=== PATIENT | male | born 1995 | race Caucasian/White ===

== ENCOUNTER 2017-09-25 21:15 | Emergency (ER) | payer MEDICAID ==
[~2017-09-25] VITALS: Ht 162.6 cm; Wt 60.8 kg
[2017-09-25 21:15] VITALS: BP_SYST 121
--- NOTE | 2017-09-25 22:36 | NUR ---
Patient to ER bed 3 to gown for evaluation. Side rails up. Report given to SHEYLA RODRIGUEZ.
--- NOTE | 2017-09-25 22:40 | NUR ---
Patient arrived to ED a/o x 4 with c/o blood in urine. Patient reports experiencing blood in urine 1 week ago. Blood appeared again tonight, prompting ED visit. Patient denies further urinary symptoms. Denies back pain. Denies N/V. Afebrile. Will continue to monitor.
--- NOTE | 2017-09-25 23:00 | NUR ---
ED MD Bhatti at bedside for medical evaluation.
[2017-09-25 23:04] LABS: BILIRUBIN,URINE NEGATIVE (NEGATIVE); BLOOD, URINE 3+ (NEGATIVE); CLARITY/URINE SL HAZY (CLEAR); COLOR,URINE YELLOW (YELLOW); GLUCOSE,URINE NEGATIVE (NEGATIVE); KETONES,URINE NEGATIVE (NEGATIVE); LEUKOCYTE ESTERASE ,URINE TRACE (NEGATIVE); NITRITE, URINE NEGATIVE (NEGATIVE); PROTEIN URINE NEGATIVE (NEGATIVE); UROBILINOGEN,URINE 0.2 (0.2-1.0)
[2017-09-25 23:23] VITALS: BP_SYST 123
--- NOTE | 2017-09-25 23:23 | NUR ---
Patient given written and verbal discharge instructions and verbalizes understanding. ER MD discussed with patient the results and treatment provided. Patient in stable condition. ID arm band removed. No Rx given. Patient educated on pain management and to follow up with PMD. Pain Scale 0/10. Opportunity for questions provided and answered.
[2017-09-25 23:33] LABS: BACTERIA,URINE FEW /HPF (None Seen); MUCUS,URINE 1+ /LPF (None Seen); RBC,URINE 50-80 /HPF (0-3); WBC,URINE 20-50 /HPF (0-3)
== END 2017-09-25 23:23 | disposition home or self-care (01) ==
LOC: SED 21:15
DX: R31.9 Hematuria, unspecified (principal)
CPT/HCPCS: 81000-TC; 87086; 99284

== ENCOUNTER 2018-10-31 19:10 | Emergency (ER) | payer MEDICAID ==
[~2018-10-31] VITALS: Ht 165.1 cm; Wt 61.2 kg
[2018-10-31 19:20] VITALS: BP_SYST 136
--- NOTE | 2018-10-31 19:20 | NUR ---
Patient to ER bed 5 to gown for evaluation. Side rails up. Report given to SHEYLA Haddad.
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
--- NOTE | 2018-10-31 19:31 | NUR ---
Rosy Iverson [employer] examining Pt at bedside.
--- NOTE | 2018-10-31 19:38 | NUR ---
Radiology at bedside.
[2018-10-31] MEDS ORDERED: IBUPROFEN 600 MG TABLET PO ONE (19:45)
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
--- NOTE | 2018-10-31 20:48 | NUR ---
Patient given written and verbal discharge instructions and verbalizes understanding. ER MD discussed with patient the results and treatment provided. Patient in stable condition. ID arm band removed. Rx of Motrin given. Patient educated on pain management and to follow up with PMD. Pain Scale 2. Opportunity for questions provided and answered. Medication side effect fact sheet provided.
[2018-10-31 21:31] VITALS: BP_SYST 136
== END 2018-10-31 20:49 | disposition home or self-care (01) ==
LOC: SED 19:10
DX: S63.91XA Sprain of unspecified part of right wrist and hand, initial encounter (principal); M25.521 Pain in right elbow; R03.0 Elevated blood-pressure reading, without diagnosis of hypertension; Y04.0XXA Assault by unarmed brawl or fight, initial encounter; Y93.89 Activity, other specified; Y92.89 Other specified places as the place of occurrence of the external cause; Y99.8 Other external cause status
CPT/HCPCS: 99283

== ENCOUNTER 2020-03-01 11:37 | Emergency (ER) | payer MEDICAID ==
[~2020-03-01] VITALS: Ht 162.6 cm; Wt 63.5 kg
[2020-03-01 12:08] VITALS: BP_SYST 130
[2020-03-01 15:01] VITALS: BP_SYST 117
--- NOTE | 2020-03-01 15:04 | NUR ---
Patient given written and verbal discharge instructions and verbalizes understanding. ER MD discussed with patient the results and treatment provided. Patient in stable condition. ID arm band removed. IV catheter removed intact and dressing applied, no active bleeding. Rx of NAPROSYN given. Patient educated on pain management and to follow up with PMD. Pain Scale . Opportunity for questions provided and answered. Medication side effect fact sheet provided.
== END 2020-03-01 15:01 | disposition home or self-care (01) ==
LOC: SED 11:37
DX: S80.12XA Contusion of left lower leg, initial encounter (principal); X50.1XXA Overexertion from prolonged static or awkward postures, initial encounter; Y93.89 Activity, other specified; Y92.89 Other specified places as the place of occurrence of the external cause; Y99.8 Other external cause status; F12.90 Cannabis use, unspecified, uncomplicated
CPT/HCPCS: 73564; 73590-TC; 99284

== ENCOUNTER 2020-03-05 14:42 | Emergency (ER) | payer MEDICAID ==
[~2020-03-05] VITALS: Ht 165.1 cm; Wt 64.9 kg
[2020-03-05 14:49] VITALS: BP_SYST 132
[2020-03-05 16:06] VITALS: BP_SYST 132
== END 2020-03-05 16:06 | disposition home or self-care (01) ==
LOC: SED 14:42
DX: S80.02XA Contusion of left knee, initial encounter (principal); F12.90 Cannabis use, unspecified, uncomplicated; X58.XXXA Exposure to other specified factors, initial encounter; Y93.89 Activity, other specified; Y92.89 Other specified places as the place of occurrence of the external cause; Y99.8 Other external cause status
CPT/HCPCS: 99283